=== PATIENT | female | born 1990 | race Caucasian/White ===

== ENCOUNTER 2016-10-14 15:58 | Emergency (ER) | payer OTHER ==
[2016-10-14 17:42] LABS: ABSOLUTE NEUTROPHIL COUNT 2.1 K/mm3 (1.8-7.7); BASO % 0.2 % (0.2-1.0); EOS % 0.7 % (0.9-2.9); HEMATOCRIT 33.9 % (37.0-47.0); HEMOGLOBIN 10.9 gm/l (12.0-16.0); IMM NEUT% 0.2 % (0-1); LYMPH # 1.9 (1.0-4.8); LYMPH % 42.9 % (15-45); MEAN CELL VOLUME 82.7 fl (81.0-99.0); MEAN CORPUSCULAR HEMOGLOBIN 26.6 pg (27.0-31.0); MEAN CORPUSCULAR HGB CONC 32.2 g/dl (33.0-37.0); MEAN PLATELET VOLUME 12.2 fl (7.4-10.4); MONO # 0.4 (0.0-0.8); MONO % 8.7 % (4-12); NEUT % 47.3 % (43-75); PLATELET COUNT 175 K/mm3 (130-400)
[2016-10-14 17:54] LABS: ALB/GLOB RATIO 1.2 (>1.0); ALBUMIN 3.8 gm/dL (3.5-5.7); CALCIUM 9.3 mg/dL (8.6-10.3)
--- NOTE | 2016-10-14 19:31 | US ---
Name: ADRIENNE BROUSSARD Exam: Obstetrical Ultrasound Comparison: None Clinical history: Lower pelvic pain. Spotting. Positive test. Findings: Transabdominal and endovaginal imaging of the pelvis was performed. The bladder where seen is normal. The uterus is normal size. Within the uterine cavity, there are at least 4, 8 mm and less anechoic oval and round structures within the uterine cavity. There is no visible pole or yolk sac. Differential considerations include very early gestation, multiple gestations, in progress, and pseudosac with ectopic . Molar is thought less likely given the hCG of only [id number]. The right ovary measures 3.1 x 2.0 x 1.7 cm. The left ovary measures 3.2 x 1.1 x 2.5 cm. There is blood flow in both ovaries. There is a 2.0 x 1.5 x 2.4 cm thick walled structure with low internal echoes. This could represent a physiologic cyst or even an ectopic . There is no free fluid. Impression: 1. No normal visible intrauterine gestation 2. Multiple 8mm and less cystic structures within the uterine cavity. Please see above comments. 3. 2 cm thick-walled complex cystic structure in the right adnexa. This may simply represent a physiologic cyst. Ectopic is not excluded on this exam. 4. No free fluid or ovarian torsion. Note: The above report was uploaded to [facility]'s electronic medical records system at 1926 hours.
== END 2016-10-14 20:38 | disposition home or self-care (01) ==
LOC: ED 15:58
DX: O20.9 Hemorrhage in early pregnancy, unspecified (principal); Z3A.01 Less than 8 weeks gestation of pregnancy

== ENCOUNTER 2016-10-19 17:50 | Emergency (ER) | payer OTHER | END 2016-10-19 19:12 | disposition home or self-care (01) | LOC: ED 17:50 | DX: O03.9 Complete or unspecified spontaneous abortion without complication (principal); Z3A.01 Less than 8 weeks gestation of pregnancy ==